=== PATIENT | female | born 1990 | race Caucasian/White ===

== ENCOUNTER → 2020-02-20 | Outpatient (REF) | payer OTHER ==
[2020-02-20 12:25] LABS: BASO # 0.1 10^3/uL (0.0-0.2); BASO % 0.6 % (0.0-1.0); EOS # 0.1 10^3/uL (0.0-0.5); EOS % 1.8 % (0.0-3.0); HEMATOCRIT 43.3 % (36.0-47.0); HEMOGLOBIN 13.8 g/dl (12.0-15.5); LYMPH # 3.3 10^3/uL (1.5-5.0); LYMPH % 41.5 % (24.0-44.0); MEAN CORPUSCULAR HEMOGLOBIN 27.8 pg (27.0-33.0); MEAN CORPUSCULAR HGB CONC 31.9 g/dl (32.0-36.5); MEAN CORPUSCULAR VOLUME 87.1 fl (80.0-96.0); MONO # 0.7 10^3/uL (0.0-0.8); NEUTROPHILS # 3.7 10^3/uL (1.5-8.5); NEUTROPHILS % 46.7 % (36.0-66.0); PLATELET COUNT, AUTOMATED 381 10^3/uL (150-450); RED BLOOD COUNT 4.97 10^6/uL (4.00-5.40)
[2020-02-20 13:06] LABS: ALBUMIN 4.6 GM/DL (3.2-5.2); ALT/SGPT 29 U/L (12-78); BILIRUBIN,TOTAL 0.3 MG/DL (0.2-1.0); BLOOD UREA NITROGEN 15 MG/DL (7-18); CALCIUM LEVEL 9.5 MG/DL (8.5-10.1); CARBON DIOXIDE LEVEL 26 MEQ/L (21-32); CHLORIDE LEVEL 103 MEQ/L (98-107); GLOMERULAR FILTRATION RATE > 60.0 (>60); GLUCOSE, FASTING 97 MG/DL (70-100); SODIUM LEVEL 138 MEQ/L (136-145); TOTAL PROTEIN 7.7 GM/DL (6.4-8.2)
== END ==
LOC: M WUC 11:01
PROVIDERS: ATTEND Physician Assistant
DX: K21.9 Gastro-esophageal reflux disease without esophagitis (principal)

== ENCOUNTER → 2020-05-23 | Outpatient (REF) | payer OTHER | LOC: M SFHCWAGY 12:51 | PROVIDERS: ATTEND Obstetrics & Gynecology | DX: Z12.4 Encounter for screening for malignant neoplasm of cervix (principal) ==

== ENCOUNTER → 2020-05-31 | Outpatient (CLI) | payer OTHER ==
[~2020-05-31] MED LIST: ISOVUE-370 76% 100ML VIAL As Ordered ONE
--- NOTE | 2020-05-31 13:26 | REP ---
INDICATION: SECONDARY OLIGOMENORRHEA. COMPARISON: No comparison pelvic imaging is available.. TECHNIQUE: 0.6 minutes of fluoroscopy time is utilized. Eight fluoroscopically obtained spot radiographs. FINDINGS: Initial endometrial contrast injection fills an elongate left-sided uterine cavity communicating only with left fallopian tube. The isthmic and ampullary segments of the left fallopian tube are opacified and there is prompt spillage from the left fallopian tube into the peritoneum. The right cornua was not identified or opacified. The catheter was a partially withdrawn and then the balloon deflated and a further endometrial contrast injection shows drainage through normal appearing cervical canal. Still no right-sided cornual opacification. Findings consistent with unit cornuate left-sided uterus.. 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 Recommend pelvic MRI study for uterine anomaly evaluation.. <Electronically signed by Toy Jackson > 05/31/20 [id number]
== END ==
LOC: M RADPRO 11:42
PROVIDERS: ATTEND Obstetrics & Gynecology
DX: N91.4 Secondary oligomenorrhea (principal)
CPT/HCPCS: 58340; 74740; Q9967

== ENCOUNTER → 2020-06-06 | Outpatient (REF) | payer OTHER ==
[2020-06-06 11:31] LABS: FREE T4 0.94 NG/DL (0.76-1.46); PROLACTIN 9.1 NG/ML; THYROID STIMULATING HORMONE 2.38 uIU/ML (0.358-3.740)
== END ==
LOC: M PLALAB 08:23
PROVIDERS: ATTEND Obstetrics & Gynecology
DX: N91.4 Secondary oligomenorrhea (principal)

== ENCOUNTER → 2020-07-11 | Outpatient (CLI) | payer OTHER ==
[~2020-07-11] MED LIST changes: -ISOVUE-370 76% 100ML VIAL As Ordered ONE; +PROHANCE 279.3MG/ML 15ML VIAL As Ordered ONE; +PROHANCE 279.3MG/ML 5ML VIAL As Ordered ONE
--- NOTE | 2020-07-11 14:25 | REP ---
INDICATION: ACUTE KIDNEY FAILURE. COMPARISON: Hysterosalpingogram 05/31/2020. TECHNIQUE: Multiple sequences obtained in the axial, coronal and sagittal planes prior to and following the intravenous administration of 17 cc ProHance. FINDINGS: The uterus is retroverted. Approximate uterine length is 6.9 cm. The endometrial canal is split into 2 horns. The myometrium at the fundus is contiguous with no indentation. There is a thick septum the 2 endometrial horns in the region of the body of the uterus. This appears to be contiguous with the thinner septum in the region of the lower uterine segment which extends inferiorly to the internal cervical os. There is no definite extension further into the cervical canal. The findings are consistent with a complete septate uterus. The endometrial thickness in the right uterine horn is approximately 7 mm in AP dimension and in the left uterine horn approximately 9 mm. The junctional zone is intact throughout. The ovaries are normal in size and appearance with normal size ovarian follicles bilaterally. No adnexal mass is seen. There is no pelvic adenopathy. There is trace free fluid in the cul-de-sac which is likely physiologic in nature. No abnormal enhancement or enhancing mass is seen. IMPRESSION: Retroverted uterus which demonstrates findings consistent with a complete septate uterus. A thin septation is visualized in the lower uterine segment extending inferiorly to the internal cervical os. There is no definite septation within the cervical canal. <Electronically signed by Mega Pride > 07/11/20 0022
== END ==
LOC: M RAD 10:45
PROVIDERS: ATTEND Obstetrics & Gynecology
DX: O34.00 Maternal care for unspecified congenital malformation of uterus, unspecified trimester (principal)

== ENCOUNTER → 2020-12-12 | Outpatient (REF) | payer OTHER ==
[2020-12-12 16:08] LABS: BASO # 0.1 10^3/uL (0.0-0.2); BASO % 0.7 % (0.0-1.0); EOS # 0.1 10^3/uL (0.0-0.5); HEMATOCRIT 42.4 % (36.0-47.0); HEMOGLOBIN 13.8 g/dl (12.0-15.5); LYMPH # 2.6 10^3/uL (1.5-5.0); LYMPH % 36.7 % (24.0-44.0); MEAN CORPUSCULAR HEMOGLOBIN 27.9 pg (27.0-33.0); MEAN CORPUSCULAR HGB CONC 32.5 g/dl (32.0-36.5); MEAN CORPUSCULAR VOLUME 85.8 fl (80.0-96.0); MONO # 0.7 10^3/uL (0.0-0.8); MONO % 9.9 % (2.0-8.0); NEUTROPHILS # 3.6 10^3/uL (1.5-8.5); NEUTROPHILS % 50.4 % (36.0-66.0); PLATELET COUNT, AUTOMATED 400 10^3/uL (150-450); RED BLOOD COUNT 4.94 10^6/uL (4.00-5.40); WHITE BLOOD COUNT 7.1 10^3/uL (4.0-10.0)
[2020-12-12 16:17] LABS: AMORPHOUS SEDIMENT SMALL (NEGATIVE); APPEARANCE, URINE TURBID (CLEAR); BACTERIA, URINE AUTO 1+ (NEGATIVE); BILIRUBIN, URINE AUTO NEGATIVE (NEGATIVE); BLOOD, URINE BLOOD NEGATIVE (NEGATIVE); COLOR, URINE YELLOW (YELLOW); GLUCOSE, URINE (UA) AUTO NEGATIVE (NEGATIVE); KETONE, URINE AUTO NEGATIVE (NEGATIVE); LEUKOCYTE ESTERASE, URINE AUTO NEGATIVE (NEGATIVE); MUCUS, URINE SMALL (NEGATIVE); NITRITE, URINE AUTO NEGATIVE (NEGATIVE); PROTEIN, URINE AUTO NEGATIVE (NEGATIVE); RBC, URINE AUTO 1 /HPF (0-3); SPECIFIC GRAVITY URINE AUTO 1.019 (1.002-1.035); SQUAMOUS EPITHELIAL CELL UR AU 0 /HPF (0-6); UROBILINOGEN, URINE AUTO 0.2 mg/dL (0.0-2.0); WBC, URINE AUTO 0 /HPF (0-3)
[2020-12-12 16:43] LABS: ALBUMIN 4.5 GM/DL (3.2-5.2); ALT/SGPT 36 U/L (12-78); BILIRUBIN,TOTAL 0.4 MG/DL (0.2-1.0); BLOOD UREA NITROGEN 18 MG/DL (7-18); CALCIUM LEVEL 9.4 MG/DL (8.5-10.1); CARBON DIOXIDE LEVEL 22 MEQ/L (21-32); CHLORIDE LEVEL 107 MEQ/L (98-107); CHOLESTEROL LEVEL 228 MG/DL (<200); CHOLESTEROL RISK RATIO 6.162 (<5); GLOMERULAR FILTRATION RATE > 60.0 (>60); GLUCOSE, FASTING 96 MG/DL (70-100); HDL CHOLESTEROL 37 MG/DL (>40); LDL CHOLESTEROL 159 MG/DL (<100); NON-HDL-C 191 MG/DL; POTASSIUM SERUM 4.2 MEQ/L (3.5-5.1); SODIUM LEVEL 136 MEQ/L (136-145); TRIGLYCERIDES LEVEL 162 MG/DL (<150)
== END ==
LOC: M SFHCCAPE 09:50
PROVIDERS: ATTEND Physician Assistant
DX: I10 Essential (primary) hypertension (principal); E28.2 Polycystic ovarian syndrome; E66.9 Obesity, unspecified

== ENCOUNTER → 2020-12-20 | Outpatient (REF) | LOC: M LABSMTC 10:12 | PROVIDERS: ATTEND Pediatrics | DX: Z11.52 Encounter for screening for COVID-19 (principal) ==

== ENCOUNTER → 2021-02-14 | Outpatient (REF) | payer OTHER, BC ==
[2021-02-14 15:45] LABS: BASO # 0.1 10^3/uL (0.0-0.2); BASO % 0.8 % (0.0-1.0); EOS # 0.1 10^3/uL (0.0-0.5); EOS % 1.8 % (0.0-3.0); HEMATOCRIT 39.6 % (36.0-47.0); HEMOGLOBIN 12.7 g/dl (12.0-15.5); LYMPH # 2.9 10^3/uL (1.5-5.0); LYMPH % 37.1 % (24.0-44.0); MEAN CORPUSCULAR HEMOGLOBIN 27.7 pg (27.0-33.0); MEAN CORPUSCULAR HGB CONC 32.1 g/dl (32.0-36.5); MEAN CORPUSCULAR VOLUME 86.5 fl (80.0-96.0); MONO # 0.7 10^3/uL (0.0-0.8); MONO % 9.2 % (2.0-8.0); NEUTROPHILS % 50.8 % (36.0-66.0); PLATELET COUNT, AUTOMATED 428 10^3/uL (150-450); RED BLOOD COUNT 4.58 10^6/uL (4.00-5.40); WHITE BLOOD COUNT 7.8 10^3/uL (4.0-10.0)
[2021-02-14 15:55] LABS: ALT/SGPT 37 U/L (12-78); BILIRUBIN,TOTAL 0.2 MG/DL (0.2-1.0); BLOOD UREA NITROGEN 14 MG/DL (7-18); CALCIUM LEVEL 9.2 MG/DL (8.5-10.1); CARBON DIOXIDE LEVEL 25 MEQ/L (21-32); CHLORIDE LEVEL 108 MEQ/L (98-107); CREATININE FOR GFR 0.88 MG/DL (0.55-1.30); GLOMERULAR FILTRATION RATE > 60.0 (>60); GLUCOSE, FASTING 101 MG/DL (70-100); HCG, SERUM QUANTITATIVE < 1.0 MIU/ML; POTASSIUM SERUM 4.5 MEQ/L (3.5-5.1); SODIUM LEVEL 138 MEQ/L (136-145); TOTAL PROTEIN 7.2 GM/DL (6.4-8.2)
== END ==
LOC: M LABDRWCV 15:21
PROVIDERS: ATTEND Obstetrics & Gynecology Reproductive Endocrinology
DX: Z01.812 Encounter for preprocedural laboratory examination (principal)

== ENCOUNTER → 2021-02-18 | Outpatient (CLI) | payer SELFPAY | LOC: M LABSMTC 09:17 | PROVIDERS: ATTEND Pediatrics | DX: Z20.822 Contact with and (suspected) exposure to COVID-19 (principal) ==

== ENCOUNTER → 2021-04-09 | Outpatient (CLI) | payer BC | LOC: M PLAIMG 10:46 | PROVIDERS: ATTEND Physician Assistant | DX: R05.3 Chronic cough (principal) ==

== ENCOUNTER → 2021-11-29 | Outpatient (CLI) | payer BC | LOC: M SLEEP 20:00 | PROVIDERS: ATTEND Nurse Practitioner Family | DX: R06.83 Snoring (principal) ==

== ENCOUNTER → 2022-07-30 | Outpatient (CLI) | payer BC ==
[2022-07-30 15:49] LABS: HEMATOCRIT 38.6 % (36.0-47.0); HEMOGLOBIN 12.5 g/dl (12.0-15.5); MEAN CORPUSCULAR HEMOGLOBIN 27.6 pg (27.0-33.0); MEAN CORPUSCULAR HGB CONC 32.4 g/dl (32.0-36.5); MEAN CORPUSCULAR VOLUME 85.2 fl (80.0-96.0); PLATELET COUNT, AUTOMATED 403 10^3/uL (150-450); RED BLOOD COUNT 4.53 10^6/uL (4.00-5.40); WHITE BLOOD COUNT 9.8 10^3/uL (4.0-10.0)
[2022-07-30 16:37] LABS: HIV 1&2 SCREEN NEGATIVE (NEGATIVE)
[2022-07-30 16:45] LABS: HEPATITIS C VIRUS ABY INDEX 0.08 INDEX (<0.8)
[2022-07-30 18:03] LABS: CREATININE,RANDOM URINE 63.5 MG/DL
[2022-07-30 18:10] LABS: TOTAL PROTEIN,RANDOM URINE < 6.0 MG/DL (0.0-14.0)
[2022-07-30 20:38] LABS: GC DNA AMPLIFICATION NEGATIVE (NEGATIVE)
== END ==
LOC: M PLALAB 14:08
PROVIDERS: ATTEND Advanced Practice Midwife
DX: O09.811 Supervision of pregnancy resulting from assisted reproductive technology, first trimester (principal)

== ENCOUNTER → 2022-09-29 | Outpatient (CLI) | payer BC | LOC: M WHC 13:17 | PROVIDERS: ATTEND Obstetrics & Gynecology | DX: Z34.92 Encounter for supervision of normal pregnancy, unspecified, second trimester (principal) ==

== ENCOUNTER 2022-12-19 13:57 | Outpatient (CLI) | payer BC ==
[2022-12-19] VITALS (8 sets, daily range): BP systolic 130–160; BP diastolic 80–97
[~2022-12-19] VITALS: Ht 167.6 cm; Wt 86.5 kg
[2022-12-19] MEDS ORDERED: LABE100T71 PO (14:06)
[2022-12-19] MEDS ORDERED: PRENTAB9 PO (14:06)
[2022-12-19] MEDS ORDERED: AMLO25TA PO (14:07)
[2022-12-19] MEDS ORDERED: ASPI81CH33 PO (14:08)
[2022-12-19] MEDS ORDERED: HOME MED LIST COMPLETE! XX SCH (14:10)
[2022-12-19 14:36] LABS: HEMATOCRIT 31.7 % (36.0-47.0); HEMOGLOBIN 10.7 g/dl (12.0-15.5); MEAN CORPUSCULAR HEMOGLOBIN 26.7 pg (27.0-33.0); MEAN CORPUSCULAR HGB CONC 33.8 g/dl (32.0-36.5); MEAN CORPUSCULAR VOLUME 79.1 fl (80.0-96.0); PLATELET COUNT, AUTOMATED 311 10^3/uL (150-450); RED BLOOD COUNT 4.01 10^6/uL (4.00-5.40)
[2022-12-19 14:52] LABS: URIC ACID 4.1 MG/DL (3.1-7.8)
[2022-12-19 14:54] LABS: LDH LACTATE DEHYDROGENASE 131 U/L (120-246)
[2022-12-19 14:55] LABS: ALT/SGPT 12 U/L (7.0-40); AST/SGOT 12 U/L (<34); BILIRUBIN,TOTAL 0.3 MG/DL (0.3-1.2); CREATININE FOR GFR 0.65 MG/DL (0.55-1.30); GLOMERULAR FILTRATION RATE > 60.0 (>60)
[2022-12-19 14:55] LABS: CREATININE,RANDOM URINE 22.7 MG/DL
[2022-12-19 14:59] LABS: TOTAL PROTEIN,RANDOM URINE < 6.0 MG/DL (0.0-14.0)
== END 2022-12-19 17:05 | disposition home or self-care (01) ==
LOC: M LDO 13:57
PROVIDERS: ATTEND Advanced Practice Midwife
DX: O10.013 Pre-existing essential hypertension complicating pregnancy, third trimester (principal); O34.03 Maternal care for unspecified congenital malformation of uterus, third trimester; O09.813 Supervision of pregnancy resulting from assisted reproductive technology, third trimester; Q51.3 Bicornate uterus; Z3A.32 32 weeks gestation of pregnancy
CPT/HCPCS: 36415; 59025; 82247; 82570; 83615; 84156; 84450; 84460; 84550; 85027; G0463

== ENCOUNTER 2023-01-07 11:31 | Outpatient (CLI) | payer BC ==
[~2023-01-07] VITALS: Ht 167.6 cm; Wt 87.2 kg
[~2023-01-07 11:31] MED LIST changes: +AMLO25TA PO; +ASPI81CH33 PO; +LABE100T71 PO; +PRENTAB9 PO; -PROHANCE 279.3MG/ML 15ML VIAL As Ordered ONE; -PROHANCE 279.3MG/ML 5ML VIAL As Ordered ONE
[2023-01-07] MEDS ORDERED: OMEP10CASR PO (11:52)
[2023-01-07] MEDS ORDERED: LABE200T5 PO (11:52)
[2023-01-07] MEDS ORDERED: HOME MED LIST COMPLETE! XX SCH (11:55)
[2023-01-07 11:57] VITALS: BP 139/88
[2023-01-07 13:56] VITALS: BP 141/89
== END 2023-01-07 15:23 | disposition home or self-care (01) ==
LOC: M LDO 11:31
PROVIDERS: ATTEND Advanced Practice Midwife
DX: O36.8330 Maternal care for abnormalities of the fetal heart rate or rhythm, third trimester, not applicable or unspecified (principal); O10.913 Unspecified pre-existing hypertension complicating pregnancy, third trimester; O09.813 Supervision of pregnancy resulting from assisted reproductive technology, third trimester; O09.293 Supervision of pregnancy with other poor reproductive or obstetric history, third trimester; O34.03 Maternal care for unspecified congenital malformation of uterus, third trimester; Q51.3 Bicornate uterus; Z3A.35 35 weeks gestation of pregnancy
CPT/HCPCS: 59025; 87081; G0463

== ENCOUNTER → 2023-01-16 | Outpatient (CLI) | payer BC ==
[~2023-01-16] MED LIST changes: +ACET325C5 PO; +IBUP80TA PO; +LABE200T5 PO; +MAGN400C PO; +OMEP10CASR PO; +OXYC1TAB23 PO
== END ==
LOC: M WHC 14:09
PROVIDERS: ATTEND Obstetrics & Gynecology
DX: O36.5990 Maternal care for other known or suspected poor fetal growth, unspecified trimester, not applicable or unspecified (principal)

== ENCOUNTER → 2023-01-23 | Outpatient (CLI) | payer BC | LOC: M WHC 14:24 | PROVIDERS: ATTEND Obstetrics & Gynecology | DX: O36.5990 Maternal care for other known or suspected poor fetal growth, unspecified trimester, not applicable or unspecified (principal) ==

== ENCOUNTER 2023-01-26 14:48 | Inpatient (IN) | payer BC ==
[~2023-01-26] VITALS: Ht 167.6 cm; Wt 86.3 kg
[2023-01-26] VITALS (19 sets, daily range): BP systolic 112–186; BP diastolic 59–102
[~2023-01-26 14:48] MED LIST changes: -ACET325C5 PO; -IBUP80TA PO; -OXYC1TAB23 PO
[2023-01-26] MEDS ORDERED: ACET325C5 PO (15:06)
[2023-01-26] MEDS ORDERED: HOME MED LIST COMPLETE! XX SCH (15:10)
[2023-01-26 16:57] LABS: HEMATOCRIT 33.6 % (36.0-47.0); HEMOGLOBIN 11.3 g/dl (12.0-15.5); MEAN CORPUSCULAR HEMOGLOBIN 26.2 pg (27.0-33.0); MEAN CORPUSCULAR HGB CONC 33.6 g/dl (32.0-36.5); MEAN CORPUSCULAR VOLUME 77.8 fl (80.0-96.0); PLATELET COUNT, AUTOMATED 376 10^3/uL (150-450); RED BLOOD COUNT 4.32 10^6/uL (4.00-5.40); WHITE BLOOD COUNT 11.7 10^3/uL (4.0-10.0)
[2023-01-26 16:57] LABS: TOTAL PROTEIN,RANDOM URINE 32.3 MG/DL (0.0-14.0)
[2023-01-26 17:11] LABS: URIC ACID 4.2 MG/DL (3.1-7.8)
[2023-01-26 17:13] LABS: LDH LACTATE DEHYDROGENASE 116 U/L (120-246)
[2023-01-26 17:14] LABS: ALT/SGPT 18 U/L (7.0-40); AST/SGOT 12 U/L (<34); BILIRUBIN,TOTAL < 0.2 MG/DL (0.3-1.2); CREATININE FOR GFR 0.66 MG/DL (0.55-1.30); GLOMERULAR FILTRATION RATE > 60.0 (>60)
[2023-01-26] MEDS ORDERED: LACTATED RINGER'S 1000 ML IV STA (19:13)
[2023-01-26] MEDS ORDERED: TRANEXAMIC ACID INJection 1,000 MG in NS 100 ML IV PRN (19:15)
[2023-01-26] MEDS ORDERED: OXYTOCIN INJ 10UNITS/ML 1ML VIAL IM PRN (19:15)
[2023-01-26] MEDS ORDERED: LIDOCAINE 1% MDV 20ML VIAL INFIL PRN (19:15)
[2023-01-26] MEDS ORDERED: OXYTOCIN DRIP 30 UNITS in IV 1 EA IV PRN (19:15)
[2023-01-26] MEDS ORDERED: CARBOPROST TROMETHAMINE 250 MCG/ML AMP IM PRN (19:15)
[2023-01-26] MEDS: LABETALOL 200 MG TAB PO SCH (19:25)
[2023-01-26] MEDS ORDERED: NIFEdipine 10 MG CAP PO STA (19:56)
[2023-01-26] MEDS ORDERED: LABETALOL 100MG/20ML VIAL IV STA (20:33)
[2023-01-26] MEDS: miSOPROStol 50MCG 1/2 TABLET PO SCH (20:44)
[2023-01-26] MEDS ORDERED: ACETAMINOPHEN 500 MG TAB PO PRN (21:55)
[2023-01-26] MEDS ORDERED: METOCLOPRAMIDE 10MG TAB PO ONE (21:55)
[2023-01-26] MEDS ORDERED: diphenhydrAMINE 50MG CAP PO ONE (21:55)
[2023-01-27] VITALS (63 sets, daily range): BP systolic 114–194; BP diastolic 59–122; O2SAT 97–98
[2023-01-27] MEDS: miSOPROStol 50MCG 1/2 TABLET PO SCH ×3 (01:01→09:27)
[2023-01-27] MEDS ORDERED: PERCOCET 5MG/325MG TAB PO ONE (01:40)
[2023-01-27] MEDS ORDERED: LR 1,000 ML IV SCH (06:40)
[2023-01-27] MEDS: LABETALOL 200 MG TAB PO SCH (07:14)
[2023-01-27] MEDS ORDERED: amLODIPine 5 MG TAB PO SCH (09:00)
[2023-01-27] MEDS ORDERED: RHOGAM 300MCG (1500IU) INJ IM SCH (11:50)
[2023-01-27] MEDS ORDERED: METHYLERGONOVINE MALEATE 0.2 MG TAB PO PRN (11:50)
[2023-01-27] MEDS ORDERED: ACETAMINOPHEN 500 MG TAB PO PRN (11:50)
[2023-01-27] MEDS ORDERED: IBUPROFEN 800 MG TAB PO PRN (11:50)
[2023-01-27] MEDS ORDERED: DOCUSATE SODIUM 100MG CAPSULE PO PRN (11:50)
[2023-01-27] MEDS ORDERED: IBUPROFEN 600MG TAB PO PRN (11:50)
[2023-01-27] MEDS ORDERED: DIBUCAINE 1% OINTMENT 30GM TOP PRN (11:50)
[2023-01-27] MEDS ORDERED: ACETAMINOPHEN TAB 650MG DOSE (2X325MG) PO PRN (11:50)
[2023-01-27] MEDS ORDERED: OXYTOCIN DRIP 30 UNITS in IV 1 EA IV SCH ×2 (12:30→13:00)
[2023-01-27] MEDS: LR 1,000 ML IV SCH ×2 (15:58→19:21)
[2023-01-27] MEDS ORDERED: FENTANYL 2MCG/ML ROPIVACAINE 0.2% IN 0.9% NACL 100ML IVBAG As Ordered ONE (16:29)
[2023-01-27] MEDS ORDERED: LR 500 ML IV PRN (17:15)
[2023-01-27] MEDS ORDERED: NALOXONE INJ 0.4MG/1ML VIAL IV PRN (17:15)
[2023-01-27] MEDS ORDERED: ONDANSETRON 4MG 2ML VIAL IV PRN (17:15)
[2023-01-27] MEDS ORDERED: EPIDURAL/PCA KEYS XX PRN (17:15)
[2023-01-27] MEDS ORDERED: diphenhydrAMINE 50MG/ML VIAL IV PRN (17:15)
[2023-01-27] MEDS ORDERED: FENTANYL/ROPIVACAINE/NACL BAG 100 ML EPIDURAL SCH (17:15)
[2023-01-27] MEDS ORDERED: ePHEDrine SULFATE 25 MG/5 ML(5MG/ML) SYRINGE IVP PRN (17:15)
[2023-01-27] MEDS ORDERED: LABETALOL 200 MG TAB PO SCH (21:00)
[2023-01-27] MEDS ORDERED: OMEPRAZOLE 20MG CAP PO SCH (21:00)
[2023-01-27] MEDS ORDERED: BICITRA 30ML SOLN UDC PO ONE (23:30)
[2023-01-27] MEDS ORDERED: ceFAZolin SOD 2 GM in IV 1 EA IV ONE (23:30)
[2023-01-27] MEDS ORDERED: AZITHROMYCIN INJ 500 MG, VIAL MATE ADAPTER 1 EACH in NS 250 ML IV ONE (23:30)
[2023-01-27] MEDS ORDERED: KETOROLAC 60MG 2ML VIAL As Ordered ONE (23:41)
[2023-01-27] MEDS ORDERED: OXYTOCIN INJ 10UNITS/ML 1ML VIAL As Ordered ONE (23:41)
[2023-01-27] MEDS ORDERED: ONDANSETRON 4MG 2ML VIAL As Ordered ONE (23:41)
[2023-01-27] MEDS ORDERED: LIDOCAINE 2% W/EPINEPHRINE 20ML VIAL **PRES FREE As Ordered ONE (23:43)
[2023-01-27] MEDS ORDERED: LABETALOL 100MG/20ML VIAL As Ordered ONE (23:58)
[2023-01-28] VITALS (11 sets, daily range): BP systolic 133–167; BP diastolic 76–92; TEMP 97.6; O2SAT 96–98
[2023-01-28 00:14] LABS: CORD GAS ABE A -0.4; CORD GAS HCO3 A 27.3 MMOL/L; CORD GAS O2 SAT A 46.7 %; CORD GAS PCO2 A 55.1 mmHg; CORD GAS PH A 7.313 UNITS; CORD GAS SBC A 22.6 MMOL/L
[2023-01-28 00:15] LABS: CORD GAS ABE V -1.5; CORD GAS HCO3 V 24.5 MMOL/L; CORD GAS O2 SAT V 56.4 %; CORD GAS PCO2 V 45.1 mmHg; CORD GAS PH V 7.352 UNITS; CORD GAS PO2 V 24.2 mmHg; CORD GAS TCO2 V 25.8 MMOL/L
[2023-01-28] MEDS ORDERED: MORPHINE PRES-FREE INJ 10 MG/10 ML VIAL As Ordered ONE (00:27)
[2023-01-28] MEDS ORDERED: diphenhydrAMINE 50MG/ML VIAL IV PRN (00:30)
[2023-01-28] MEDS ORDERED: METOCLOPRAMIDE INJ 10MG/2ML VIAL IV PRN (00:30)
[2023-01-28] MEDS ORDERED: oxyCODONE 5MG TAB PO PRN (00:30)
[2023-01-28] MEDS ORDERED: NALOXONE INJ 0.4MG/1ML VIAL IV PRN ×2 (00:30)
[2023-01-28] MEDS ORDERED: **NOTE PATIENT COMMENT** MISC XX SCH (00:30)
[2023-01-28] MEDS ORDERED: SLF 3 ML SYR IV SCH (00:30)
[2023-01-28] MEDS ORDERED: fentaNYL 100 MCG/2 ML INJECTION IV PRN (00:30)
[2023-01-28] MEDS ORDERED: MORPHINE 2 MG/ML 1ML VIAL IV PRN (00:30)
[2023-01-28] MEDS ORDERED: ONDANSETRON 4MG 2ML VIAL IV PRN (00:30)
[2023-01-28] MEDS ORDERED: OXYTOCIN DRIP 30 UNITS in IV 1 EA IV SCH (00:50)
[2023-01-28] MEDS ORDERED: PERCOCET 5MG/325MG TAB PO PRN ×2 (00:50)
[2023-01-28] MEDS ORDERED: SIMETHICONE 80MG CHEW TAB PO PRN (00:50)
[2023-01-28] MEDS ORDERED: LR 1,000 ML IV SCH (00:50)
[2023-01-28] MEDS ORDERED: RHOGAM 300MCG (1500IU) INJ IM SCH (00:50)
[2023-01-28] MEDS ORDERED: OXYTOCIN 30UNITS IN 0.9% NaCl 500ML IV BAG As Ordered ONE (01:57)
[2023-01-28] MEDS ORDERED: IBUP80TA PO (06:11)
[2023-01-28] MEDS ORDERED: OXYC1TAB23 PO (06:11)
[2023-01-28] MEDS: KETOROLAC 30 MG/ML 1ML VIAL IV SCH ×3 (06:38→18:26)
[2023-01-28] MEDS ORDERED: PRENATAL VITAMINS CHEWABLE TABLET PO SCH (09:00)
[2023-01-28] MEDS ORDERED: amLODIPine 5 MG TAB PO SCH (09:00)
[2023-01-28] MEDS: PRENATAL VITAMINS CHEWABLE TABLET PO SCH (09:15)
[2023-01-28] MEDS: LABETALOL 200 MG TAB PO SCH ×2 (09:16→20:38)
[2023-01-28] MEDS: amLODIPine 5 MG TAB PO SCH (09:17)
[2023-01-28] MEDS: DOCUSATE SODIUM 100MG CAPSULE PO PRN (09:57)
[2023-01-28] MEDS: MAGNESIUM OXIDE 400MG TAB (MAG-OX) PO SCH (20:35)
[2023-01-29] VITALS (7 sets, daily range): BP systolic 132–157; BP diastolic 75–89; O2SAT 94–98
[2023-01-29] MEDS: IBUPROFEN 800 MG TAB PO SCH ×3 (04:08→18:28)
[2023-01-29 06:30] LABS: HEMATOCRIT 26.7 % (36.0-47.0); HEMOGLOBIN 8.9 g/dl (12.0-15.5); MEAN CORPUSCULAR HEMOGLOBIN 26.3 pg (27.0-33.0); MEAN CORPUSCULAR HGB CONC 33.3 g/dl (32.0-36.5); PLATELET COUNT, AUTOMATED 361 10^3/uL (150-450); RED BLOOD COUNT 3.38 10^6/uL (4.00-5.40)
[2023-01-29] MEDS ORDERED: MEASLES,MUMPS,RUBELLA VACCINE INJ (MMR-II) SC.IMMUN ONE (09:00)
[2023-01-29] MEDS: PRENATAL VITAMINS CHEWABLE TABLET PO SCH (09:09)
[2023-01-29] MEDS: LABETALOL 200 MG TAB PO SCH ×2 (09:10→21:25)
[2023-01-29] MEDS: amLODIPine 5 MG TAB PO SCH (09:11)
[2023-01-29] MEDS: MAGNESIUM OXIDE 400MG TAB (MAG-OX) PO SCH (21:25)
[2023-01-30] VITALS (9 sets, daily range): BP systolic 137–166; BP diastolic 84–98; O2SAT 96–98
[2023-01-30] MEDS: IBUPROFEN 800 MG TAB PO SCH ×3 (02:09→18:09)
[2023-01-30] MEDS: amLODIPine 5 MG TAB PO SCH (06:20)
[2023-01-30] MEDS: LABETALOL 200 MG TAB PO SCH ×3 (06:21→21:03)
[2023-01-30] MEDS ORDERED: MEASLES,MUMPS,RUBELLA VACCINE INJ (MMR-II) SC.IMMUN ONE (09:00)
[2023-01-30] MEDS: PRENATAL VITAMINS CHEWABLE TABLET PO SCH (10:04)
[2023-01-30] MEDS: DOCUSATE SODIUM 100MG CAPSULE PO PRN (10:04)
[2023-01-30] MEDS: MAGNESIUM OXIDE 400MG TAB (MAG-OX) PO SCH (21:02)
[2023-01-31] VITALS (8 sets, daily range): BP systolic 124–178; BP diastolic 74–105; O2SAT 97–99
[2023-01-31] MEDS ORDERED: NIFEdipine 10 MG CAP PO SCH ×2 (02:15→02:20)
[2023-01-31] MEDS ORDERED: NIFEdipine 10 MG CAP PO STA (02:27)
[2023-01-31] MEDS: IBUPROFEN 800 MG TAB PO SCH ×2 (02:35→10:07)
[2023-01-31] MEDS: LABETALOL 200 MG TAB PO SCH ×2 (06:02→13:33)
[2023-01-31] MEDS: PRENATAL VITAMINS CHEWABLE TABLET PO SCH (08:56)
[2023-01-31] MEDS: amLODIPine 5 MG TAB PO SCH (08:57)
[2023-01-31 09:00] LABS: HEMATOCRIT 34.2 % (36.0-47.0); MEAN CORPUSCULAR HEMOGLOBIN 25.9 pg (27.0-33.0); MEAN CORPUSCULAR HGB CONC 32.2 g/dl (32.0-36.5); MEAN CORPUSCULAR VOLUME 80.5 fl (80.0-96.0); PLATELET COUNT, AUTOMATED 409 10^3/uL (150-450); RED BLOOD COUNT 4.25 10^6/uL (4.00-5.40); WHITE BLOOD COUNT 9.9 10^3/uL (4.0-10.0)
[2023-01-31 09:25] LABS: ALBUMIN 3.4 G/DL (3.2-5.2); ALKALINE PHOSPHATASE 67 U/L (46-116); ALT/SGPT 20 U/L (7.0-40); AST/SGOT 21 U/L (<34); BILIRUBIN,TOTAL 0.3 MG/DL (0.3-1.2); BLOOD UREA NITROGEN 10 MG/DL (9-23); CALCIUM LEVEL 9.2 MG/DL (8.5-10.1); CARBON DIOXIDE LEVEL 28 MMOL/L (20-31); CHLORIDE LEVEL 102 MMOL/L (98-107); CREATININE FOR GFR 0.75 MG/DL (0.55-1.30); GLOMERULAR FILTRATION RATE > 60.0 (>60); GLUCOSE, FASTING 92 MG/DL (60-100); POTASSIUM SERUM 3.4 MMOL/L (3.5-5.1); SODIUM LEVEL 138 MMOL/L (136-145); TOTAL PROTEIN 6.9 G/DL (5.7-8.2)
[2023-01-31] MEDS ORDERED: POTASSIUM CHLORIDE 10MEQ SR TABLET PO ONE (10:00)
[2023-01-31] MEDS: DOCUSATE SODIUM 100MG CAPSULE PO PRN (10:07)
[2023-01-31] MEDS ORDERED: LABE20TAB PO (18:02)
[2023-01-31] MEDS ORDERED: IBUP-1022 PO (18:02)
[2023-01-31] MEDS ORDERED: COLA100C5 PO (18:02)
== END 2023-01-31 18:40 | disposition home or self-care (01) | DRG 540 ==
LOC: M LDO 14:48 → M LDI 19:14 → M OBS 01-28 02:10
PROVIDERS: ADMIT Advanced Practice Midwife; ATTEND Specialist
PROC: 3E0P7GC Introduction of Other Therapeutic Substance into Female Reproductive, Via Natural or Artificial Opening (ICD-10-PCS; 2023-01-26)
PROC: 10907ZC Drainage of Amniotic Fluid, Therapeutic from Products of Conception, Via Natural or Artificial Opening (ICD-10-PCS; 2023-01-27)
PROC: 10D00Z1 Extraction of Products of Conception, Low, Open Approach (ICD-10-PCS; principal; 2023-01-28)
DX: O11.4 Pre-existing hypertension with pre-eclampsia, complicating childbirth (principal); O36.5930 Maternal care for other known or suspected poor fetal growth, third trimester, not applicable or unspecified; Z3A.37 37 weeks gestation of pregnancy; O34.03 Maternal care for unspecified congenital malformation of uterus, third trimester; E28.2 Polycystic ovarian syndrome; O99.284 Endocrine, nutritional and metabolic diseases complicating childbirth; Z79.82 Long term (current) use of aspirin; Z79.899 Other long term (current) drug therapy; Z91.018 Allergy to other foods; O62.0 Primary inadequate contractions; Z37.0 Single live birth; O10.02 Pre-existing essential hypertension complicating childbirth

== ENCOUNTER → 2023-08-31 | Outpatient (REF) | payer BC ==
[~2023-08-31] MED LIST changes: +ACET325C5 PO; +COLA100C5 PO; +IBUP-1022 PO; +IBUP80TA PO; +LABE100T40 PO; -LABE100T71 PO; +LABE20TAB PO; +OXYC1TAB23 PO
[2023-08-31 17:13] LABS: ALBUMIN 4.3 G/DL (3.2-5.2); ALKALINE PHOSPHATASE 38 U/L (46-116); ALT/SGPT 21 U/L (7.0-40); AST/SGOT 8 U/L (<34); BILIRUBIN,TOTAL 0.2 MG/DL (0.3-1.2); BLOOD UREA NITROGEN 15 MG/DL (9-23); CALCIUM LEVEL 9.3 MG/DL (8.5-10.1); CARBON DIOXIDE LEVEL 24 MMOL/L (20-31); CHLORIDE LEVEL 106 MMOL/L (98-107); CHOLESTEROL LEVEL 221 MG/DL (<200); CHOLESTEROL RISK RATIO 5.44 (<5); CREATININE FOR GFR 0.87 MG/DL (0.55-1.30); FREE T4 1.24 NG/DL (0.89-1.76); GLOMERULAR FILTRATION RATE > 60.0 (>60); GLUCOSE, FASTING 91 MG/DL (60-100); HDL CHOLESTEROL 40.6 MG/DL (>40); LDL CHOLESTEROL 145.4 MG/DL (<100); NON-HDL-C 180.4 MG/DL; POTASSIUM SERUM 4.3 MMOL/L (3.5-5.1); SODIUM LEVEL 139 MMOL/L (136-145); THYROID STIMULATING HORMONE 1.772 uIU/ML (0.55-4.78); TRIGLYCERIDES LEVEL 175 MG/DL (<150)
[2023-08-31 17:17] LABS: BASO # 0.1 10^3/uL (0.0-0.2); BASO % 0.8 % (0.0-1.0); EOS # 0.2 10^3/uL (0.0-0.5); EOS % 2.2 % (0.0-3.0); HEMATOCRIT 40.1 % (36.0-47.0); HEMOGLOBIN 12.8 g/dl (12.0-15.5); LYMPH # 3.6 10^3/uL (1.5-5.0); LYMPH % 42.5 % (24.0-44.0); MEAN CORPUSCULAR HEMOGLOBIN 27.1 pg (27.0-33.0); MEAN CORPUSCULAR HGB CONC 31.9 g/dl (32.0-36.5); MEAN CORPUSCULAR VOLUME 84.8 fl (80.0-96.0); MONO # 0.7 10^3/uL (0.0-0.8); MONO % 8.1 % (2.0-8.0); NEUTROPHILS # 3.9 10^3/uL (1.5-8.5); NEUTROPHILS % 46.2 % (36.0-66.0); PLATELET COUNT, AUTOMATED 399 10^3/uL (150-450); RED BLOOD COUNT 4.73 10^6/uL (4.00-5.40); WHITE BLOOD COUNT 8.5 10^3/uL (4.0-10.0)
== END ==
LOC: M SFHCCAPE 09:04
PROVIDERS: ATTEND Physician Assistant Medical
DX: Z00.00 Encounter for general adult medical examination without abnormal findings (principal); E78.2 Mixed hyperlipidemia; I10 Essential (primary) hypertension; E28.2 Polycystic ovarian syndrome

== ENCOUNTER → 2024-01-06 | Outpatient (CLI) | payer BC ==
[2024-01-06 17:50] LABS: HEMATOCRIT 41.1 % (36.0-47.0); HEMOGLOBIN 13.6 g/dl (12.0-15.5); MEAN CORPUSCULAR HEMOGLOBIN 28.2 pg (27.0-33.0); MEAN CORPUSCULAR HGB CONC 33.1 g/dl (32.0-36.5); MEAN CORPUSCULAR VOLUME 85.3 fl (80.0-96.0); PLATELET COUNT, AUTOMATED 418 10^3/uL (150-450); RED BLOOD COUNT 4.82 10^6/uL (4.00-5.40); WHITE BLOOD COUNT 8.9 10^3/uL (4.0-10.0)
[2024-01-06 18:07] LABS: TOTAL PROTEIN,RANDOM URINE 35.3 MG/DL (0.0-14.0)
[2024-01-06 18:14] LABS: ALBUMIN 3.7 G/DL (3.2-5.2); ALKALINE PHOSPHATASE 36 U/L (35-104); ALT/SGPT 22 U/L (7.0-40); AST/SGOT < 8 U/L (<34); BILIRUBIN,TOTAL 0.2 MG/DL (0.3-1.2); BLOOD UREA NITROGEN 8 MG/DL (9-23); CALCIUM LEVEL 9.8 MG/DL (8.5-10.1); CARBON DIOXIDE LEVEL 20 MMOL/L (20-31); CHLORIDE LEVEL 107 MMOL/L (98-107); CREATININE FOR GFR 0.68 MG/DL (0.55-1.30); GLOMERULAR FILTRATION RATE > 60.0 (>60); GLUCOSE, FASTING 153 MG/DL (60-100); POTASSIUM SERUM 3.8 MMOL/L (3.5-5.1); SODIUM LEVEL 137 MMOL/L (136-145); TOTAL PROTEIN 6.9 G/DL (5.7-8.2)
[2024-01-06 18:15] LABS: THYROID STIMULATING HORMONE 0.015 uIU/ML (0.55-4.78)
[2024-01-06 18:16] LABS: FREE T4 1.91 NG/DL (0.89-1.76)
[2024-01-06 18:29] LABS: CREATININE,RANDOM URINE 303.8 MG/DL
[2024-01-06 18:42] LABS: HIV 1&2 SCREEN NEGATIVE (NEGATIVE)
[2024-01-06 18:48] LABS: HEPATITIS C VIRUS ABY INDEX 0.17 INDEX (<0.8)
[2024-01-07 13:10] LABS: GC DNA AMPLIFICATION NEGATIVE (NEGATIVE)
== END ==
LOC: M PLALAB 16:04
PROVIDERS: ATTEND Obstetrics & Gynecology
DX: O10.919 Unspecified pre-existing hypertension complicating pregnancy, unspecified trimester (principal)

== ENCOUNTER → 2024-03-07 | Outpatient (CLI) | payer BC | LOC: M WHC 07:52 | PROVIDERS: ATTEND Specialist | DX: Z34.82 Encounter for supervision of other normal pregnancy, second trimester (principal) ==

== ENCOUNTER → 2024-04-22 | Outpatient (CLI) | payer BC ==
[2024-04-22 14:10] LABS: GLUCOSE CHALLENGE TEST 1 HOUR 118 MG/DL (LESS THAN 140)
[2024-04-22 14:13] LABS: HEMOGLOBIN 11.7 g/dl (12.0-15.5); MEAN CORPUSCULAR HEMOGLOBIN 27.8 pg (27.0-33.0); MEAN CORPUSCULAR HGB CONC 32.5 g/dl (32.0-36.5); MEAN CORPUSCULAR VOLUME 85.5 fl (80.0-96.0); PLATELET COUNT, AUTOMATED 303 10^3/uL (150-450); RED BLOOD COUNT 4.21 10^6/uL (4.00-5.40); WHITE BLOOD COUNT 10.3 10^3/uL (4.0-10.0)
[2024-04-22 14:45] LABS: HIV 1&2 SCREEN NEGATIVE (NEGATIVE)
[2024-04-22 14:53] LABS: HEPATITIS C VIRUS ABY INDEX 0.02 INDEX (<0.8)
[2024-04-22 15:57] LABS: Trichomonas vaginalis (AMP) NOT DETECTED (NEGATIVE)
[2024-04-22 16:20] LABS: GC DNA AMPLIFICATION NEGATIVE (NEGATIVE)
== END ==
LOC: M PLALAB 09:50
PROVIDERS: ATTEND Obstetrics & Gynecology
DX: Z34.92 Encounter for supervision of normal pregnancy, unspecified, second trimester (principal)

== ENCOUNTER → 2024-05-20 | Outpatient (CLI) | payer BC | LOC: M WHC 09:13 | PROVIDERS: ATTEND Obstetrics & Gynecology | DX: O10.919 Unspecified pre-existing hypertension complicating pregnancy, unspecified trimester (principal) ==

== ENCOUNTER → 2024-06-09 | Outpatient (CLI) | payer BC ==
[2024-06-09 13:28] LABS: HEMATOCRIT 34.6 % (36.0-47.0); HEMOGLOBIN 11.7 g/dl (12.0-15.5); MEAN CORPUSCULAR HEMOGLOBIN 27.8 pg (27.0-33.0); MEAN CORPUSCULAR HGB CONC 33.8 g/dl (32.0-36.5); MEAN CORPUSCULAR VOLUME 82.2 fl (80.0-96.0); PLATELET COUNT, AUTOMATED 278 10^3/uL (150-450); RED BLOOD COUNT 4.21 10^6/uL (4.00-5.40); WHITE BLOOD COUNT 9.3 10^3/uL (4.0-10.0)
[2024-06-09 13:53] LABS: URIC ACID 4.3 MG/DL (3.1-7.8)
[2024-06-09 13:55] LABS: LDH LACTATE DEHYDROGENASE 131 U/L (120-246)
[2024-06-09 13:56] LABS: ALT/SGPT 15 U/L (7.0-40); AST/SGOT 15 U/L (<34); BILIRUBIN,TOTAL 0.3 MG/DL (0.3-1.2); CREATININE FOR GFR 0.66 MG/DL (0.55-1.30); GLOMERULAR FILTRATION RATE > 90.0 (>60)
[2024-06-09 16:00] LABS: CREATININE,RANDOM URINE 41.4 MG/DL
[2024-06-09 16:03] LABS: TOTAL PROTEIN,RANDOM URINE < 6.0 MG/DL (0.0-14.0)
== END ==
LOC: M PLALAB 12:01
PROVIDERS: ATTEND Nurse Practitioner Family
DX: O10.919 Unspecified pre-existing hypertension complicating pregnancy, unspecified trimester (principal)

== ENCOUNTER → 2024-06-10 | Outpatient (CLI) | payer BC | LOC: M WHC 10:05 | PROVIDERS: ATTEND Obstetrics & Gynecology | DX: O10.919 Unspecified pre-existing hypertension complicating pregnancy, unspecified trimester (principal) ==

== ENCOUNTER → 2024-06-16 | Outpatient (REF) | payer BC | LOC: M SFHCWAGY 12:44 | PROVIDERS: ATTEND Obstetrics & Gynecology | DX: Z36.89 Encounter for other specified antenatal screening (principal); Z3A.34 34 weeks gestation of pregnancy ==

== ENCOUNTER → 2024-06-22 | Outpatient (CLI) | payer BC ==
[~2024-06-22] MED LIST changes: +AMLO1TAB24 PO; +ECOT81TA5 PO; +LEVO25TA5 PO; +METF-838 PO; +OMEP-173 PO
== END ==
LOC: M RAD 13:24
PROVIDERS: ATTEND Obstetrics & Gynecology
DX: O36.5990 Maternal care for other known or suspected poor fetal growth, unspecified trimester, not applicable or unspecified (principal)

== ENCOUNTER → 2024-06-29 | Outpatient (CLI) | payer BC ==
[2024-06-29 15:57] LABS: HEMATOCRIT 35.5 % (36.0-47.0); HEMOGLOBIN 11.8 g/dl (12.0-15.5); MEAN CORPUSCULAR HEMOGLOBIN 27.6 pg (27.0-33.0); MEAN CORPUSCULAR HGB CONC 33.2 g/dl (32.0-36.5); MEAN CORPUSCULAR VOLUME 83.1 fl (80.0-96.0); PLATELET COUNT, AUTOMATED 273 10^3/uL (150-450); RED BLOOD COUNT 4.27 10^6/uL (4.00-5.40); WHITE BLOOD COUNT 11.3 10^3/uL (4.0-10.0)
[2024-06-29 16:26] LABS: TOTAL PROTEIN,RANDOM URINE 16.7 MG/DL (0.0-14.0)
[2024-06-29 16:27] LABS: URIC ACID 4.2 MG/DL (3.1-7.8)
[2024-06-29 16:28] LABS: LDH LACTATE DEHYDROGENASE 138 U/L (120-246)
[2024-06-29 16:30] LABS: ALT/SGPT 12 U/L (7.0-40); AST/SGOT 14 U/L (<34); BILIRUBIN,TOTAL 0.3 MG/DL (0.3-1.2); CREATININE FOR GFR 0.65 MG/DL (0.55-1.30); GLOMERULAR FILTRATION RATE > 90.0 (>60)
[2024-06-29 16:31] LABS: CREATININE,RANDOM URINE 115.8 MG/DL
== END ==
LOC: M PLALAB 13:23
PROVIDERS: ATTEND Advanced Practice Midwife
DX: O10.919 Unspecified pre-existing hypertension complicating pregnancy, unspecified trimester (principal); Z3A.00 Weeks of gestation of pregnancy not specified